=== PATIENT | male | born 1975 | race Caucasian/White ===

== ENCOUNTER 2019-12-22 00:29 | Emergency (ER) | payer BC ==
[~2019-12-22] VITALS: Ht 190.5 cm; Wt 142.9 kg
[2019-12-22 00:49] VITALS: BP 161/96
--- NOTE | 2019-12-22 01:15 | ER.PDOC ---
General Chief Complaint: Requesting Medical Care Stated Complaint: FEVER,COUGH,POSS EXPOSURE TO COVID Time seen by MD: 01:05 Source: patient Exam Limitations: no limitations History of Present Illness Initial Comments Patient c/o fever, cough, ST onset 24 hours ago. He has been exposed to COVID19 Timing/Duration: gradual, yesterday Severity: moderate Associated Symptoms: fever/chills, sore throat, productive cough, hurts to breath Worsen By: deep breathing Constitutional: chills, fever EENTM: throat pain Respiratory: cough, shortness of breath Cardiovascular: chest pain (hurts to breath) Gastrointestinal: no symptoms reported Genitourinary: no symptoms reported Musculoskeletal: no symptoms reported Skin: no symptoms reported Psychiatric/Neurological: headache Endocrine: no symptoms reported Hematologic/Lymphatic: no symptoms reported All Other Systems: Reviewed and Negative Past Medical History Medical History: no pertinent history Surgical History: knee Family History Significant Family History: no pertinent family hx Social History Smoking: non-smoker Alcohol Use: none Drug Use: none Physical Exam General Appearance: alert, no distress Eye: eyes nml inspection, lids & conjunct. nml, PERRL, no nystagmus Nose: nose nml Throat: airway nml, pharyngeal erythema Neck: nml inspection, supple Respiratory: no resp.distress, breath sounds nml Abdomen: non-tender, no organomegaly CVS: reg rate & rhythm, heart sounds nml Skin: color nml, no rash, warm/dry Extremities: nml ROM, no pedal edema NEURO/PSYCH: oriented x 3, mood/affect nml Results/Orders Results/Orders Orders - JERRY MANCINI DO Influenza A&B (12/22/19 01:10) Strep Screen (12/22/19 01:10) Novel Coronavirus 2019(Dshs) (12/22/19 01:10) Amoxicillin (Amoxil) (12/22/19 01:49) Vital Signs Date Time Temp Pulse Resp B/P (MAP) Pulse Ox O2 Delivery O2 Flow Rate FiO2 12/22/19 00:49 99.6 95 20 99 12/22/19 00:49 99.6 95 20 161/96 (117) 99 Room Air Laboratory Tests Test 12/22/19 01:12 Influenza Type A Antigen NEGATIVE (NEG) Influenza B Immunofluorescence NEGATIVE (NEG) Group A Streptococcus Screen POSITIVE (NEGATIVE) Progress Progress strep positive ER DEPART Departure Time of Disposition: 01:56 Disposition: 01 HOME, SELF-CARE Impression: Primary Impression: Suspected 2019 novel coronavirus infection Additional Impressions: Viral syndrome Strep pharyngitis Condition: Stable Patient Instructions: Strep Throat, Viral Syndrome Referrals: PCP,UNKNOWN (PCP) PRIMARY CARE PROVIDER Additional Instructions: The entire household should sequester at home until your COVID19 results are known. Alternate Tylenol and Motrin per package instructions every 4 hours as needed for fever. Return to ER if you experience any difficulty breathing or swallowing, or for any emergent concerns. Follow up with your doctor next week for reevaluation. Take antibiotics as prescribed until all gone. Duration or Time Spent with Pa: 15 min Problem Qualifiers JERRY MANCINI DO Dec 22, 2019 01:14
[2019-12-22] MEDS ORDERED: AMOXIL PO STA (01:49)
[2019-12-22] MEDS ORDERED: AMOXIL PO ONE (01:59)
== END 2019-12-22 02:05 | disposition home or self-care (01) ==
LOC: ER 00:29
DX: B34.9 Viral infection, unspecified (principal); J02.0 Streptococcal pharyngitis; Z20.828 Contact with and (suspected) exposure to other viral communicable diseases
CPT/HCPCS: 87635; 87804; 87880; 99283